=== PATIENT | male | born 1990 | race Caucasian/White ===

== ENCOUNTER 2017-09-21 17:42 | Emergency (ER) ==
[2017-09-21 17:48] VITALS: BP 172/115; TEMP 98.9; BMI 41.3
--- NOTE | 2017-09-21 18:10 | ED.PDOC ---
General ED Provider: Dr. THOMPSON HURTADO Chief Complaint: Non-specific Complaint Stated Complaint: throat pain Time Seen by Physician: 18:00 Mode of Arrival: Walk-In Information Source: Patient Exam Limitations: No limitations Primary Care Provider: RICHARD DANIELSON Nursing and Triage Documentation Reviewed and Agree: Yes Reviewed sepsis parameters & appropriate labs ordered?: Yes System Inflammatory Response Syndrome: Not Applicable Sepsis Protocol: For patient's 13 years and over: Temp is 96.8 and below OR 101 and greater Pulse >90 BPM Resp >20/minute Acutely Altered Mental Status Are patient's symptoms suggestive of a new infection, such as: -Pneumonia -Skin, Soft Tissue -Endocarditis -UTI -Bone, Joint Infection -Implantable Device -Acute Abdominal Infection -Wound Infection -Meningitis -Blood Stream Catheter Infection -Unknown System Inflammatory Response Syndrome: Not Applicable EENT Complaint Exam - Throat Complaint/Exam Onset/Duration: 3 days Symptoms Are: Still present Initial Severity: Moderate Current Severity: Mild Aggravating: Reports: Eating Alleviating: Reports: None Associated Signs and Symptoms: Reports: Cough, Nasal congestion. Denies: Fever , Dysphagia, Drooling, Foreign body sensation, Chills, Wheezing, Hoarseness, Sinus discomfort, Difficulty breathing, Lethargy, Irritability, Decreased activity, Vomiting, Diarrhea, Decreased hearing, Ear drainage Uvula Midline: Yes Colleen-tonsillar Fluctuence: No Scarlatinaform Rash Present: No Stridor Present: No Sinus Tenderness Present: No Tonsillar Hypertrophy Present: No Tonsillar Exudate Present: No Colleen-tonsillar Swelling Present: No Adenopathy Present: Yes (1 node left sided anterior soft mobile 1cm) Splenomegaly Present: No Differential Diagnoses: Pharyngitis Review of Systems - Review Of Systems Constitutional: Reports: Malaise Eyes: Reports: No symptoms Ears, Nose, Mouth, Throat: Reports: Throat pain Respiratory: Reports: Cough Cardiac: Reports: No symptoms GI: Reports: No symptoms : Reports: No symptoms Musculoskeletal: Reports: No symptoms Skin: Reports: No symptoms Neurological: Reports: No symptoms Endocrine: Reports: No symptoms Hematologic/Lymphatic: Reports: No symptoms All Other Systems: Reviewed and Negative Past Medical History - Past Medical History Previously Healthy: Yes Endocrine: Reports: None Cardiovascular: Reports: None Respiratory: Reports: None Hematological: Reports: None Gastrointestinal: Reports: None Genitourinary: Reports: None Neuro/Psych: Reports: None Musculoskeletal: Reports: None Cancer: Reports: None - Surgical History General Surgical History: Reports: None - Family History Family History: Reports: None - Social History Smoking Status: Never smoker Hx Substance Use: No Alcohol Screening: Occasionally - Immunizations Tetanus Shot up to Date: No Physical Exam - Physical Exam Appearance: Well-appearing Ill-appearing: Mild Pain Distress: Mild Eyes: CARLITOS, EOMI, Conjunctiva clear ENT: Erythema Respiratory: Rhonchi Cardiovascular: RRR, Pulses normal, No rub, No murmur GI/: Soft, Nontender, No masses, Bowel sounds normal, No Organomegaly Musculoskeletal: Normal strength, ROM intact, No edema, No calf tenderness Skin: Warm, Dry, Normal color Neurological: Sensation intact, Motor intact, Reflexes intact, Cranial nerves intact, Alert, Oriented Psychiatric: Affect appropriate, Mood appropriate Critical Care Note - Critical Care Note Total Time (mins): 0 Course - Course Vital Signs: Temp Pulse Resp BP Pulse Ox 09/21/17 17:43 98.9 F 87 18 172/115 H 95 Departure - Departure Time of Disposition: 18:09 Disposition: HOME SELF-CARE Discharge Problem: Viral syndrome Pharyngitis Qualifiers: Pharyngitis/tonsillitis etiology: unspecified etiology Qualified Code(s): J02.9 - Acute pharyngitis, unspecified Instructions: Pharyngitis (ED) Condition: Good Pt referred to PMD for follow-up: Yes Additional Instructions: Please call your Family Physician as soon as possible to schedule a follow-up appointment. Allergies/Adverse Reactions: Allergies Penicillins Adverse Reaction (Verified 09/21/17 17:48) Hives Home Medications: Ambulatory Orders 1 [No Reported Medications] 08/30/13
== END 2017-09-21 18:13 | disposition home or self-care (01) ==
LOC: ED 17:42
DX: J02.9 Acute pharyngitis, unspecified (principal); B34.9 Viral infection, unspecified
CPT/HCPCS: 99282

== ENCOUNTER 2018-03-08 11:55 | Emergency (ER) ==
[2018-03-08 11:56] VITALS: BMI 41.3
[2018-03-08 12:00] VITALS: BP 162/94; TEMP 100.5
[2018-03-08] MEDS ORDERED: SODIUM CHLORIDE 1,000 ML IV STA (12:21)
--- NOTE | 2018-03-08 14:00 | ED.PDOC ---
General ED Provider: Dr. THOMPSON HURTADO Chief Complaint: Neck Pain Non-Injury Stated Complaint: NECK PAIN RIGHT SIGHT EDEMA NECK Time Seen by Physician: 12:00 (NEGATIVE TRAUMA) Mode of Arrival: Walk-In Information Source: Patient Exam Limitations: No limitations Primary Care Provider: RICHARD DANIELSON Nursing and Triage Documentation Reviewed and Agree: Yes Does patient meet sepsis criteria?: No If yes, has appropriate treatment been initiated?: No System Inflammatory Response Syndrome: Not Applicable (NO INJURY ROM WNL BUT HAS SOME PAIN RIGHT SIDED) Sepsis Protocol: For patient's 13 years and over: Temp is 96.8 and below OR 101 and greater Pulse >90 BPM Resp >20/minute Acutely Altered Mental Status Are patient's symptoms suggestive of a new infection, such as: -Pneumonia -Skin, Soft Tissue -Endocarditis -UTI -Bone, Joint Infection -Implantable Device -Acute Abdominal Infection -Wound Infection -Meningitis -Blood Stream Catheter Infection -Unknown Musculoskeletal Complaint Exam - Neck Pain Complaint/Exam Mechanism of Injury: Reports: No known trauma Onset/Duration: 1 DAY Symptoms Are: Still present Timing: Constant Episodes Lasting: Hours Initial Severity: Mild Current Severity: Mild Location: Reports: Discrete (RIGHT NECK) Character: Reports: Dull Aggravating: Reports: Position Alleviating: Reports: Position Associated Signs and Symptoms: Denies: Swelling, Redness, Bruising, Fever, Nuchal rigidity, Weakness, Headache, Paresthesia Meningitis Risk Factors: Reports: None Cervical Spine Injury Risk Factors: Reports: None Related Surgical History: Reports: None Carotid Bruit Present: No Pain on Passive Flexion: No Positive Kernig's Sign: No ROM Limited In: Present: Right. Absent: Flexion, Extension, Left, Side bending , Rotation Tenderness: Absent: Midline, Paraspinal Radiates to: Absent: Right arm, Left arm, Other Focal Weakness: Present: None Nexus Low Risk Criteria: No post-midline CS tender, No evidence of intoxicat., No Altered LOC, No focal neuro deficit, No distracting injuries Differential Diagnoses: Adenitis, Sprain, Strain, Other (MONO, STREP ) Review of Systems - Review Of Systems Constitutional: Reports: No symptoms Eyes: Reports: No symptoms Ears, Nose, Mouth, Throat: Reports: No symptoms Respiratory: Reports: No symptoms Cardiac: Reports: No symptoms GI: Reports: No symptoms : Reports: No symptoms Musculoskeletal: Reports: Neck pain Skin: Reports: No symptoms Neurological: Reports: No symptoms Endocrine: Reports: No symptoms Hematologic/Lymphatic: Reports: No symptoms All Other Systems: Reviewed and Negative Past Medical History - Past Medical History Previously Healthy: Yes Endocrine: Reports: None Cardiovascular: Reports: None Respiratory: Reports: None Hematological: Reports: None Gastrointestinal: Reports: None Genitourinary: Reports: None Neuro/Psych: Reports: None Musculoskeletal: Reports: None Cancer: Reports: None - Surgical History General Surgical History: Reports: None - Family History Family History: Reports: None - Social History Smoking Status: Never smoker Hx Substance Use: No Alcohol Screening: Occasionally - Immunizations Tetanus Shot up to Date: No Physical Exam - Physical Exam Appearance: Well-appearing, No pain distress, Well-nourished Eyes: CARLITOS, EOMI, Conjunctiva clear ENT: Ears normal, Nose normal, Oropharynx normal Respiratory: Airway patent, Breath sounds clear, Breath sounds equal, Respirations nonlabored Cardiovascular: RRR, Pulses normal, No rub, No murmur GI/: Soft, Nontender, No masses, Bowel sounds normal, No Organomegaly Musculoskeletal: Normal strength, ROM intact, No edema, No calf tenderness Skin: Warm, Dry, Normal color Neurological: Sensation intact, Motor intact, Reflexes intact, Cranial nerves intact, Alert, Oriented Psychiatric: Affect appropriate, Mood appropriate Critical Care Note - Critical Care Note Total Time (mins): 0 Course - Course Hematology/Chemistry: 03/08/18 12:40 03/08/18 12:40 Orders, Labs, Meds: Lab Review 03/08/18 03/08/18 03/08/18 12:40 12:40 12:40 WBC 15.62 H RBC 5.59 Hgb 15.4 Hct 46.9 MCV 83.9 MCH 27.5 MCHC 32.8 RDW Coeff of [place] 13.1 Plt Count 239 Immature Gran % (Auto) 0.3 Neut % (Auto) 75.9 Lymph % (Auto) 12.1 [place] % (Auto) 11.1 H Eos % (Auto) 0.3 Baso % (Auto) 0.3 Immature Gran # (Auto) 0.0 Neut # (Auto) 11.9 H Lymph # (Auto) 1.9 [place] # (Auto) 1.7 Eos # (Auto) 0.1 Baso # (Auto) 0.1 Sodium 137 Potassium 3.5 Chloride 102 Carbon Dioxide 23 Anion Gap 15.5 BUN 9 Creatinine 1.02 Estimated GFR (MDRD) 86.00 BUN/Creatinine Ratio 8.82 Glucose 101 H Lactic Acid 10.0 Calcium 9.6 Total Bilirubin 1.2 AST 13 L ALT 31 Alkaline Phosphatase 58 Total Protein 8.2 Albumin 3.5 Globulin 4.7 Albumin/Globulin Ratio 0.74 Infectious [place] Assay 03/08/18 12:40 WBC RBC Hgb Hct MCV MCH MCHC RDW Coeff of [place] Plt Count Immature Gran % (Auto) Neut % (Auto) Lymph % (Auto) [place] % (Auto) Eos % (Auto) Baso % (Auto) Immature Gran # (Auto) Neut # (Auto) Lymph # (Auto) [place] # (Auto) Eos # (Auto) Baso # (Auto) Sodium Potassium Chloride Carbon Dioxide Anion Gap BUN Creatinine Estimated GFR (MDRD) BUN/Creatinine Ratio Glucose Lactic Acid Calcium Total Bilirubin AST ALT Alkaline Phosphatase Total Protein Albumin Globulin Albumin/Globulin Ratio Infectious [place] Assay Negative Orders Category Date Time Status NPO REMINDER: IMAGING ONCE CARE 03/08/18 12:21 Completed ED IV/MEDIPORT/POWERPORT .ONCE EMERGENCY 03/08/18 12:20 Active BLOOD CULTURE (ED ONLY) Stat LAB 03/08/18 12:40 Received CBC W/ AUTO DIFF Stat LAB 03/08/18 12:40 Completed COMPREHENSIVE METABOLIC PANEL Stat LAB 03/08/18 12:40 Completed LACTIC ACID Stat LAB 03/08/18 12:40 Completed MOLECULAR GROUP A STREP Stat LAB 03/08/18 12:40 Completed MONONUCLOSIS SCREEN Stat LAB 03/08/18 12:40 Completed 0.9 % Sodium Chloride [Saline Flush] MEDS 03/08/18 12:20 Active 1 syr IVF PRN PRN Cefazolin Sodium [Ancef] 1 gm MEDS 03/08/18 14:18 Ordered 0.9 % Sodium Chloride [Sodium Chloride] 100 ml IV ONCE Sodium Chloride 0.9% [Sodium Chloride] 1,000 ml MEDS 03/08/18 12:21 Active IV 125 mls/hr CT SOFT TISSUE NECK W/CONTRAST Stat RADS 03/08/18 12:20 Ordered Medications Generic Name Dose Route Start Last Admin Trade Name Freq PRN Reason Stop Dose Admin Sodium Chloride 1,000 mls @ 125 mls/hr 03/08/18 12:21 06/22/18 12:42 Sodium Chloride IV 03/08/18 20:20 125 mls/hr .Q8H STA Administration Sodium Chloride 1 syr 03/08/18 12:20 03/08/18 12:43 Saline Flush IVF 1 syr PRN PRN Administration To flush IV Vital Signs: Temp Pulse Resp BP Pulse Ox 03/08/18 11:56 100.5 F H 100 H 18 162/94 H 95 Departure - Departure Time of Disposition: 15:00 Disposition: HOME SELF-CARE Discharge Problem: Neck pain, Strep pharyngitis Instructions: Strep Throat (DC) Condition: Good Pt referred to PMD for follow-up: Yes IPMP verified?: No Additional Instructions: Please call your Family Physician as soon as possible to schedule a follow-up appointment. Allergies/Adverse Reactions: Allergies Penicillins Adverse Reaction (Verified 03/08/18 12:01) Hives Home Medications: Ambulatory Orders 1 [No Reported Medications] 08/30/13 Disposition Discussed With: Patient, Family
[2018-03-08] MEDS ORDERED: ANCEF 1 GM in SODIUM CHLORIDE 100 ML IV STA (14:18)
[2018-03-08] MEDS ORDERED: ANCEF ONE (14:21)
--- NOTE | 2018-03-08 15:05 | CT ---
EXAM: CT of the soft tissue neck with contrast History: Left jaw pain. Comparison: None available. Technique: Multiplanar CT images through the soft tissue neck were obtained without the administrati on of IV contrast Findings: The visualized orbits are intact. Visualized intracranial contents demonstrate no acute f indings. No acute fracture or dislocation. Paranasal sinuses and mastoid air cells are clear in gen eral. Epiglottis is not thickened. There is enlargement of the bilateral palatine tonsils. The uvu la is enlarged. There is inflammation within the left neck, carotid space with thrombosis of the lef t internal jugular vein measuring a length of 2.8 cm. The area of inflammation versus infiltrating m ass measures 2.7 cm x 2.7 cm. There are multiple enlarged lymph nodes seen within the left neck jugu lar chain measuring up to 1.5 cm. The visualized upper lungs are free of consolidation. No parotid masses. Submandibular glands are u nremarkable. No discrete thyroid nodules are identified by CT. Impression: 1. 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 2. Inflammation within the left carotid space versus infiltrating lesion. 3. Left neck lymphadenopathy could be reactive or metastatic. 4. Enlarged bilateral palatine tonsils. Critical results communicated to Dr. Dumont at 3:01 p.m. 03/08/2018
[2018-03-08] MEDS ORDERED: FLAGYL 500 MG/100 ML 500 MG in PREMIX 100 ML NS 1 BAG IV STA (15:08)
[2018-03-08] MEDS ORDERED: FLAGYL 500 MG/100 ML 100 ML IV ONE (15:15)
[2018-03-08] MEDS ORDERED: LOVENOX SUBCUT STA (16:00)
--- NOTE | 2018-03-08 16:59 | CT ---
EXAM: CT of the chest without contrast History: Cough. Comparison: CT soft tissue neck 03/08/2018, CT abdomen pelvis 08/22/2016 Technique: Multiplanar CT images through the thorax were obtained without the administration of IV c ontrast Findings: Heart size is upper limits of normal. No pericardial effusion. No thoracic aortic aneury sm. No pathologically enlarged thoracic lymph nodes. Right upper lobe nodules with surrounding grou nd-glass and the largest measuring 1 cm seen on coronal image 62. Subsegmental atelectasis seen at t he lung bases. No pleural fluid and no pneumothorax. Within the visualized upper abdomen, the liver is fatty. No acute osseous abnormalities. Impression: 1. Right upper lobe nodules could be infectious/inflammatory or neoplastic. Recommend follow-up [facility] in 3 months. 2. Hepatic steatosis
== END 2018-03-08 16:45 | disposition short-term general hospital (02) ==
LOC: ED 11:55
DX: I82.C12 Acute embolism and thrombosis of left internal jugular vein (principal); M54.2 Cervicalgia; J02.0 Streptococcal pharyngitis
CPT/HCPCS: 36415; 80053; 83605; 85025; 86308; 87040; 87651; 93005; 93010; 96365; 96366; 96372; 99285

== ENCOUNTER 2018-03-25 15:35 | Outpatient (CLI) | END 2018-03-25 15:36 | disposition home or self-care (01) | LOC: LAB 15:35 | DX: Z79.2 Long term (current) use of antibiotics (principal) | CPT/HCPCS: 36415; 80048; 85025 ==

== ENCOUNTER 2018-04-01 10:32 | Outpatient (CLI) | END 2018-04-01 10:33 | disposition home or self-care (01) | LOC: LAB 10:32 | PROVIDERS: ATTEND Internal Medicine Infectious Disease | DX: Z51.81 Encounter for therapeutic drug level monitoring (principal); Z79.2 Long term (current) use of antibiotics | CPT/HCPCS: 36415; 80048; 85025 ==

== ENCOUNTER 2018-06-08 12:49 | Emergency (ER) ==
[2018-06-08 12:56] VITALS: TEMP 98; BMI 42.7
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
[2018-06-08 13:32] VITALS: BP 142/97
== END 2018-06-08 13:32 | disposition home or self-care (01) ==
LOC: ED 12:49
DX: M79.601 Pain in right arm (principal); S09.93XA Unspecified injury of face, initial encounter; S49.91XA Unspecified injury of right shoulder and upper arm, initial encounter; S09.90XA Unspecified injury of head, initial encounter; H92.01 Otalgia, right ear; W22.8XXA Striking against or struck by other objects, initial encounter; Z72.0 Tobacco use
CPT/HCPCS: 99282

== ENCOUNTER 2018-10-01 14:02 | Outpatient (CLI) ==
--- NOTE | 2018-10-01 15:49 | CT ---
EXAM: CT of the soft tissue neck with contrast History: Follow-up left jugular vein thrombosis. Comparison: CT soft tissue neck 03/08/2018 Technique: Multiplanar CT images through the soft tissue neck were obtained following administration of IV contrast. Findings: The upper lungs are clear. No acute osseous abnormalities. No prevertebral soft tissue s welling. Epiglottis is not thickened. No thyroid nodules identified by CT. No peritonsillar inflam mation. Orbits are intact. The visualized intracranial components are unremarkable. No parotid inf lammation. Submandibular glands are not inflamed. The left jugular vein thrombosis has resolved. R esolved inflammation within the left carotid space. No pathologically enlarged neck lymph nodes. Th e visualized paranasal sinuses and mastoid air cells are clear in general. Impression: 1. No acute findings within the soft tissue neck. 2. Resolved left internal jugular vein thrombosis. 3. Resolved inflammation within the left carotid space.
== END 2018-10-01 14:03 | disposition home or self-care (01) ==
LOC: RAD 14:02
PROVIDERS: ATTEND Family Medicine
DX: I82.890 Acute embolism and thrombosis of other specified veins (principal)
CPT/HCPCS: 36415; 82565